=== PATIENT | female | born 1950 | race Asian ===

== ENCOUNTER 2020-06-20 20:40 | Emergency (ER) | payer OTHER ==
[~2020-06-20] VITALS: Ht 165.1 cm; Wt 58.1 kg
[2020-06-20 21:13] VITALS: Ht 165.1 cm; Wt 58.1 kg
[2020-06-20 23:46] LABS: RED CELL DISTRIBUTION WIDTH 13.8 % (12.3-17.7)
[2020-06-20 23:50] LABS: PLATELET COUNT 60 x10^3mcL (179-408)
[2020-06-20 23:54] LABS: CARBON DIOXIDE 23.6 mmol/L (21-32); CHLORIDE SERUM 103 mmol/L (98-107); GLUCOSE SERUM 116 mg/dL (74-106); POTASSIUM SERUM 4.3 mmol/L (3.5-5.1); SODIUM SERUM 136 mmol/L (136-145)
[2020-06-20 23:59] LABS: ALBUMIN 3.7 g/dL (3.4-5.0); ALKALINE PHOSPHATASE 124 U/L (46-116); ALT/SGPT 32 U/L (14-59); AST/SGOT 21 U/L (15-37); BILIRUBIN TOTAL 0.56 mg/dL (0.20-1.00); TOTAL PROTEIN, SERUM 7.4 g/dL (6.4-8.2)
[2020-06-21 00:25] LABS: BAND NEUTROPHIL 3 % (0-10); MONOCYTE 7 % (0-7); SEGMENTED NEUTROPHILS 73 % (37-75); rbc morphology (normal/abnorm) NORMAL (NORMAL)
[2020-06-21 02:15] VITALS: BP 133/70
== END 2020-06-21 02:15 | disposition home or self-care (01) ==
LOC: ED 20:40
PROVIDERS: Emergency Medicine
DX: R07.89 Other chest pain (principal); I10 Essential (primary) hypertension; Z88.5 Allergy status to narcotic agent; Z20.828 Contact with and (suspected) exposure to other viral communicable diseases